=== PATIENT | female | born 1965 | race Caucasian/White ===

== ENCOUNTER 2017-04-12 21:52 | Emergency (ER) | payer OTHER ==
[2017-04-12] MEDS ORDERED: Albuterol/Ipratropium NEB.SOL* Albuterol 2.5 MG/Ipratropium 0.5 MG 3 ML INH ONE (23:04)
[2017-04-12] MEDS ORDERED: predniSONE TAB* 20 MG PO ONE (23:04)
[2017-04-13] MEDS ORDERED: Azithromycin TAB* 250 MG PO ONE (00:15)
[2017-04-13] MEDS ORDERED: guaiFENesin/CODIEN 100MG-10MG* 5 ML UDC PO ONE (00:16)
[2017-04-13] MEDS ORDERED: Albuterol HFA INHALER* 8 gm MDI INH ONE (00:16)
--- NOTE | 2017-04-13 00:27 | ED ---
Respiratory - HPI Summary HPI Summary: 51F presents with cough for 3 days. She admits to fever two days before. She admits to SOB. She states she feels like lungs feel tight. She has no history of asthma or COPD. She denies any sinus congestion, ear pain, sore throat. She denies any abdominal pain, n/v/d. She states her cough is productive. She has been using OTC cough medication without relief. She is not a smoker. She states her appetite has been normal. She states she tends to get bronchitis once a year. - History of Current Complaint Chief Complaint: EDUpperRespComplaint Stated Complaint: DIFFICULTY BREATHING Time Seen by Provider: 04/12/17 22:58 Pain Intensity: 4 Sputum Amount: Small Sputum Color: Yellow, Green - Allergy/Home Medications Allergies/Adverse Reactions: Allergies Allergy/AdvReac Type Severity Reaction Status Date / Time No Known Allergies Allergy Verified 04/12/17 21:58 PMH/Surg Hx/FS Hx/Imm Hx Endocrine/Hematology History: Denies: Hx Diabetes, Hx Thyroid Disease Cardiovascular History: Denies: Hx Hypertension Respiratory History: Denies: Hx Asthma, Hx Chronic Obstructive Pulmonary Disease (COPD) GI History: Denies: Hx Ulcer - Surgical History Surgery Procedure, Year, and Place: LT ANKLE SURGERY x2 Infectious Disease History: No Infectious Disease History: Denies: Hx Hepatitis, Hx Human Immunodeficiency Virus (HIV), History Other Infectious Disease, Traveled Outside the in Last 30 Days - Family History Known Family History: Positive: None Negative: Respiratory Disease - Social History Alcohol Use: Daily Alcohol Amount: 1 glass of wine per night Substance Use Type: Reports: None Smoking Status (MU): Never Smoked Tobacco Review of Systems Positive: Fever Positive: Other - chest tightness Positive: Shortness Of Breath, Cough Negative: Abdominal Pain All Other Systems Reviewed And Are Negative: Yes Physical Exam Triage Information Reviewed: Yes Vital Signs On Initial Exam: Initial Vitals Temp Pulse Resp BP Pulse Ox 99.9 F 106 20 120/92 93 04/12/17 21:55 04/12/17 21:55 04/12/17 21:55 04/12/17 21:55 04/12/17 21:55 Vital Signs Reviewed: Yes Appearance: Positive: Well-Appearing Skin: Positive: Warm, Dry Head/Face: Positive: Normal Head/Face Inspection Eyes: Positive: Normal, EOMI, TRENT, Conjunctiva Clear Respiratory/Lung Sounds: Positive: Breath Sounds Present, Rhonchi. Negative: Wheezes Cardiovascular: Positive: Normal, RRR Abdomen Description: Positive: Nontender, Soft Bowel Sounds: Positive: Present Musculoskeletal: Positive: Normal Neurological: Positive: Normal Psychiatric: Positive: Normal - Norris Coma Scale Coma Scale Total: 15 Diagnostics - Vital Signs Vital Signs Temp Pulse Resp BP Pulse Ox 04/12/17 23:30 95 10 126/68 93 04/12/17 23:19 84 12 98 04/12/17 23:00 83 17 118/74 94 04/12/17 22:30 114/85 04/12/17 22:23 92 94 04/12/17 22:21 122/77 04/12/17 21:55 99.9 F 106 20 120/92 93 - Laboratory Lab Statement: Any lab studies that have been ordered have been reviewed, and results considered in the medical decision making process. - Radiology chest Xray Interpretation: Positive (See Comments) - possible consolidation, more likely viral pattern Radiology Interpretation Completed By: ED Physician Disposition - Course Course Of Treatment: 51F presents with cough for 3 days. She admits to fever two days before. She admits to SOB. She states she feels like lungs feel tight. She has no history of asthma or COPD. She denies any sinus congestion, ear pain, sore throat. She denies any abdominal pain, n/v/d. She states her cough is productive. She has been using OTC cough medication without relief. She is not a smoker. She states her appetite has been normal. She states she tends to get bronchitis once a year. on exam has rhonchi. gave neb treatment and lungs CTA. chest xray read by me probably viral pattern but will treat with azithrmoycin. gave steriod and inhaler for SOB. patient understand and agrees with plan. - Differential Dx - Cardiopulmonary Differential Diagnoses - Cardiopulmonary: Bronchitis, Influenza, Lower Resp Infection - Diagnoses Provider Diagnoses: Cough Discharge - Discharge Plan Condition: Good Disposition: HOME Prescriptions: Azithromycin TAB* [Zithromax TAB (Z-KRISTOPHER) 250 mg #6 tabs] 250 mg PO DAILY #4 tab Guaifenesin-Codeine [Cheratussin AC 100-10 mg/5Ml] 5 ml PO Q6HR #100 ml MDD 20ml predniSONE TAB* [Deltasone TAB*] 40 mg PO DAILY #4 tab Patient Education Materials: Acute Bronchitis (ED) Referrals: Sahara Browne NP [Primary Care Provider] - Additional Instructions: Use inhaler up to two puffs every 4-6 hours for cough and wheezing Take steroid once a day for 4 more days starting tomorrow for 5 days Take antibiotic once daily starting tomorrow for 4 days Take 5ml of cough medication every 6 hours for cough Take Tylenol or ibuprofen for pain every 6 hours Return to ED if develop severe shortness of breath, worsening chest pain, or any new or worsening symptoms
[2017-04-13 00:33] VITALS: BP 104/68
--- NOTE | 2017-04-13 07:52 | RAD ---
INDICATION: Cough COMPARISON: None TECHNIQUE: PA and lateral views of the chest were obtained. FINDINGS: The heart and mediastinum are normal in size and contour. The lungs are grossly clear. There is no evidence of large pleural effusion. Visualized bones are normal for the patient's age. There is no radiographic evidence of free air beneath the diaphragm IMPRESSION: No radiographic evidence of acute cardiopulmonary disease.
== END 2017-04-13 00:45 | disposition home or self-care (01) ==
LOC: ED 21:52
DX: R05 Cough (principal); R06.02 Shortness of breath; R50.9 Fever, unspecified
CPT/HCPCS: 71020; 94640; 99283; A9270-GY; J7512

== ENCOUNTER 2017-12-18 18:45 | Emergency (ER) | payer OTHER ==
[2017-12-18 19:21] VITALS: BP 138/88
--- NOTE | 2017-12-18 19:44 | RAD ---
INDICATION: Right forearm injury. TECHNIQUE: 2 views of the right forearm were obtained. FINDINGS: The bones are in normal alignment. No fracture is seen. IMPRESSION: NO EVIDENCE FOR FRACTURE.
[2017-12-18] MEDS ORDERED: Ibuprofen TAB* 600 MG PO ONE (20:12)
[2017-12-18] MEDS ORDERED: HYDROcodone/ACETAMIN 5-325 MG* 1 TAB PO ONE (20:12)
--- NOTE | 2017-12-18 20:13 | UC ---
Upper Extremity HPI - HPI Summary HPI Summary: This is avery Oliveros documenting for attending Jeremy Singer MD. This patient is a 52 year old F presenting to [facility] with a chief complaint of R forearm pain after falling down the stairs that occurred [employer]. The patient rates the pain 9/10 in severity. Symptoms aggravated by movement of the wrist. Symptoms alleviated by nothing. Patient denies numbness. Medications reviewed. Allergies reviewed. - History of Current Complaint Chief Complaint: UCUpperExtremity Stated Complaint: ARM INJURY Time Seen by Provider: 12/18/17 20:05 Hx Obtained From: Patient Hx Last Menstrual Period: 1 month ago ?: No Onset/Duration: Sudden Onset, Lasting Hours, Still Present Severity Initially: Severe Severity Currently: Severe Pain Intensity: 9 Pain Scale Used: 0-10 Numeric Location Of Pain: Is Discrete @ - R forearm Aggravating Factor(s): Other - Movement of R wrist Alleviating Factor(s): Nothing Associated Signs And Symptoms: Negative: Numbness/Tingling - Allergies/Home Medications Allergies/Adverse Reactions: Allergies Allergy/AdvReac Type Severity Reaction Status Date / Time No Known Allergies Allergy Verified 12/18/17 19:21 Home Medications: Home Medications Soy Isofla/Blk Cohosh/Mag Bark [[place]ro[place] Multi-Symptom Me] 1 cap PO 12/18/17 [ History] PMH/Surg Hx/FS Hx/Imm Hx Previously Healthy: Yes Endocrine History: Other Other Endocrine History: Negative diabetes Cardiovascular History: Other Other Cardiovascular History: Negative HTN - Surgical History Surgical History: Yes Surgery Procedure, Year, and Place: LT ANKLE SURGERY x2 - Family History Known Family History: Negative: Respiratory Disease - Social History Occupation: Employed Full-time Lives: With Family Alcohol Use: Daily Alcohol Amount: 1 glass of wine per night Substance Use Type: None Smoking Status (MU): Never Smoked Tobacco Review of Systems Musculoskeletal: Other: - Positive R forarm pain Neurological: Other - Negative numbness and tingling All Other Systems Reviewed And Are Negative: Yes Physical Exam - Summary Physical Exam Summary: General: well-appearing, no pain distress Skin: warm, color reflects adequate perfusion, dry. R forearm with abrasion, no full thickness Head: normal Eyes: EOMI, TRENT ENT: normal Neck: supple, nontender Respiratory: CTA, breath sounds present Cardiovascular: RRR Abdomen: soft, nontender Bowel: present Musculoskeletal: R forearm with swelling. Good ROM of wrist elbows and fingers. Swelling is in the ulnar aspect. strength/ROM intact Neurological: sensory/motor intact, A&O x3 Psychological: affect/mood appropriate Triage Information Reviewed: Yes Vital Signs: Initial Vital Signs Temp 98.8 F 12/18/17 19:19 Pulse 63 12/18/17 19:19 Resp 18 12/18/17 19:19 BP 138/88 12/18/17 19:19 Pulse Ox 100 12/18/17 19:19 Vital Signs Reviewed: Yes Diagnostics - Radiology R Forearm XR Radiology Interpretation Completed By: Radiologist - R forearm XR reveals, per radiologist, no evidence for fracture. ED physician has reviewed this radiology report. Upper Extremity Course/Dx - Course Course Of Treatment: DISCUSSED X-RAY RESULTS WITH THE PATIENT. SWELLING IS NOT CIRCUMFERENTIAL. NO SIGN OF COMPARTMENT SYNDROME AT THIS TIME. F/U PMD; RECHECK SOONER IF WORSE. - Differential Dx/Diagnosis Provider Diagnoses: RIGHT FOREARM CONTUSION Discharge - Sign-Out/Discharge Documenting (check all that apply): Patient Departure - Discharge Plan Condition: Stable Disposition: HOME Prescriptions: HYDROcodone/ACETAMIN 5-325 MG* [[place] 5-325 TAB*] 1 tab PO Q4H PRN #20 tab MDD 6 PRN Reason: Pain Patient Education Materials: Contusion in Adults (ED), Abrasion (ED) Referrals: Sahara Browne NP [Primary Care Provider] - Additional Instructions: FOLLOW UP WITH YOUR DOCTOR. GET RECHECKED FOR ANY WORSENING OF YOUR CONDITION OR QUESTIONS OR CONCERNS. - Billing Disposition and Condition Condition: STABLE Disposition: Home
== END 2017-12-18 20:30 | disposition home or self-care (01) ==
LOC: UCEAST 18:45
DX: S50.11XA Contusion of right forearm, initial encounter (principal); W10.9XXA Fall (on) (from) unspecified stairs and steps, initial encounter; Y93.9 Activity, unspecified; Y92.9 Unspecified place or not applicable
CPT/HCPCS: 99212; A9270-GY; G0463